=== PATIENT | female | born 1970 | race African-American/Black ===

== ENCOUNTER 2020-04-25 17:18 | Emergency (ER) | payer MEDICAID ==
[~2020-04-25] VITALS: Ht 162.6 cm; Wt 73.0 kg
[2020-04-25] MEDS ORDERED: ONDANSETRON HCL 4MG/2ML INJ IV STA ×2 (17:44→19:49)
[2020-04-25] MEDS ORDERED: KETOROLAC 30MG/ML VIAL IV STA (17:44)
[2020-04-25] MEDS ORDERED: SODIUM CHLORIDE 0.9% 1,000 ML IV ONE (17:44)
[2020-04-25 17:58] LABS: BASOPHILS % 0.4 % (0.0-2.0); EOSINOPHILS % 0.7 % (0.0-5.0); HEMATOCRIT. 41.9 % (36.0-48.0); HEMOGLOBIN. 14.1 g/dL (12.0-16.0); LYMPHOCYTES % 16.8 % (20.0-50.0); MEAN CORPUSCULAR HEMOGLOBIN 27.6 pg (28.0-32.0); MEAN CORPUSCULAR VOLUME 81.7 fL (81.0-99.0); MEAN PLATELET VOLUME 8.5 fl (7.4-10.4); NEUTROPHILS % 78.1 % (40.0-76.0); PLATELET 335 x1000/uL (130-400); RED BLOOD CELL COUNT 5.12 mill/uL (4.2-5.4); RED CELL DISTRIBUTION WIDTH 15.4 % (11.6-14.6)
[2020-04-25 18:00] LABS: CHLORIDE 100 mEq/L (98-107)
[2020-04-25 18:17] LABS: CLARITY URINE CLEAR (CLEAR); COLOR URINE YELLOW (YELLOW); KETONES URINE 4+ (NEGATIVE); LEUKOCYTE ESTERASE URINE NEGATIVE (NEGATIVE); NITRITE URINE NEGATIVE (NEGATIVE); OCCULT BLOOD URINE TRACE (NEGATIVE); PH URINE 5.5 (4.5-8.0); PROTEIN URINE 1+ (NEGATIVE); SPECIFIC GRAVITY URINE 1.038 (1.005-1.030); UROBILINOGEN URINE 0.2 E.U./dL (0.2-1.0)
[2020-04-25] MEDS ORDERED: MORPHINE SULFATE 4 MG/ML CPJ (NOT FOR IM USE) IV STA (19:49)
[2020-04-25 21:01] VITALS: BP 129/79
== END 2020-04-25 21:02 | disposition home or self-care (01) ==
LOC: ER 17:18
DX: R10.33 Periumbilical pain (principal); E11.9 Type 2 diabetes mellitus without complications; F12.10 Cannabis abuse, uncomplicated
CPT/HCPCS: 36415; 74176; 80053; 81003; 81025; 82962; 83690; 85025; 96361; 96374; 96375; 96376; 99285; J1885; J2270; J2405; J7030

== ENCOUNTER 2025-11-21 13:25 | Emergency (ER) | payer MEDICAID ==
[~2025-11-21] VITALS: Ht 165.1 cm; Wt 95.0 kg
[2025-11-21 13:39] VITALS: O2SAT 99
[2025-11-21] MEDS: METOCLOPRAMIDE HCL 10MG TABLET PO ONE (14:20)
[2025-11-21] MEDS: ACETAMINOPHEN 500MG TABLET PO ONE (14:20)
[2025-11-21 14:42] LABS: BASOPHILS % 0.5 % (0.0-2.0); EOSINOPHILS % 0.9 % (0.0-5.0); HEMATOCRIT. 37.0 % (36.0-48.0); HEMOGLOBIN. 12.0 g/dL (12.0-16.0); LYMPHOCYTES % 20.1 % (20.0-50.0); MEAN PLATELET VOLUME 7.6 fl (7.4-10.4); MONOCYTES % 7.3 % (2.0-8.0); NEUTROPHILS % 71.2 % (40.0-76.0); PLATELET 321 x1000/uL (130-400); RED BLOOD CELL COUNT 4.68 mill/uL (4.2-5.4); RED CELL DISTRIBUTION WIDTH 16.2 % (11.6-14.6)
[2025-11-21 14:46] LABS: INFLUENZA TYPE A Presumptive Negative (Pres. Neg.); INFLUENZA TYPE B Presumptive Negative (Pres. Neg.)
[2025-11-21 14:47] LABS: RESPIRATORY SYNCYTIAL VIRUS Not Detected (Not Detectd)
[2025-11-21 14:55] LABS: CREATININE 0.7 mg/dL (0.6-1.0); UREA NITROGEN BLOOD 7 mg/dL (9-23)
[2025-11-21 14:56] LABS: PROTEIN TOTAL 7.5 g/dL (6.0-8.3); TROPONIN I HIGH SENSITIVITY < 4 ng/L (3.0-34)
[2025-11-21 14:57] LABS: ASPARTATE AMINOTRANSFERASE 16 IU/L (<34); BILIRUBIN DIRECT < 0.1 mg/dL (<=3.0); BILIRUBIN TOTAL 0.4 mg/dL (0.1-1.0)
[2025-11-21] MEDS ORDERED: IBUP-2030 MT (15:13)
[2025-11-21] MEDS ORDERED: GUAI237L83 MT (15:13)
[2025-11-21] MEDS ORDERED: AZIT250T12 MT (15:13)
[2025-11-21 15:38] VITALS: BP 137/77; PULSE 98; RESP 18; TEMP 36.8; O2SAT 99
== END 2025-11-21 19:11 | disposition home or self-care (01) ==
LOC: ER 13:25 → CMPBEDREQ 11-22 08:26
DX: J20.9 Acute bronchitis, unspecified (principal); J34.89 Other specified disorders of nose and nasal sinuses; R11.0 Nausea; R51.9 Headache, unspecified; R06.02 Shortness of breath; E11.9 Type 2 diabetes mellitus without complications; Z98.51 Tubal ligation status; Z98.890 Other specified postprocedural states; Z20.822 Contact with and (suspected) exposure to COVID-19
CPT/HCPCS: 99285; 71045; 80076; 80048; 83880; 83690; 83735; 85025; 87420; 84484; 87804 ×2; 36415; 93005; J8597